=== PATIENT | female | born 1970 | race Caucasian/White ===

== ENCOUNTER → 2016-09-11 | Outpatient (CLI) | payer BC ==
--- NOTE | 2016-09-12 10:01 | MM ---
Reason for exam: screening (asymptomatic). Last mammogram was performed 1 year and 5 months ago. History: Patient has history of other cancer at age 41. Benign right mammotome panel of the right breast, December 13, 2008. Took hormonal contraceptives for 5 years beginning at age 18. Physical Findings: A clinical breast exam by your physician is recommended on an annual basis and results should be correlated with mammographic findings. MG 3D Screening Mammo W/Cad Bilateral CC and MLO view(s) were taken. Prior study comparison: April 01, 2015, bilateral MG screening mammo w CAD. March 31, 2014, bilateral MG screening mammo w CAD. The breast tissue is almost entirely fat. Previous mammotome biopsy in the right breast. There is chronic nodularity in the right breast. No significant changes when compared with prior studies. ASSESSMENT: Benign, BI-RAD 2 RECOMMENDATION: Routine screening mammogram of both breasts in 1 year.
== END ==
LOC: RADMAMWWP 13:25
PROVIDERS: ATTEND Obstetrics & Gynecology
DX: Z12.31 Encounter for screening mammogram for malignant neoplasm of breast (principal)
CPT/HCPCS: 77063; G0202

== ENCOUNTER → 2018-01-15 | Outpatient (CLI) | payer BC ==
--- NOTE | 2018-01-16 10:43 | MM ---
Reason for exam: screening (asymptomatic). Last mammogram was performed 1 year and 4 months ago. History: Patient has history of other cancer at age 41. Benign right mammotome panel of the right breast, December 13, 2008. Took hormonal contraceptives for 5 years beginning at age 18. Physical Findings: A clinical breast exam by your physician is recommended on an annual basis and results should be correlated with mammographic findings. MG 3D Screening Mammo W/Cad Bilateral CC and MLO view(s) were taken. XCCL view(s) were taken of the right breast. Prior study comparison: September 11, 2016, bilateral MG 3d screening mammo w/cad. April 01, 2015, bilateral MG screening mammo w CAD. There are scattered fibroglandular densities. Previous mammotome biopsy in the right breast. No significant changes when compared with prior studies. ASSESSMENT: Benign, BI-RAD 2 RECOMMENDATION: Routine screening mammogram of both breasts in 1 year.
== END | disposition home or self-care (01) ==
LOC: RADMAMWWP 16:33
PROVIDERS: ATTEND Obstetrics & Gynecology
DX: Z12.31 Encounter for screening mammogram for malignant neoplasm of breast (principal)
CPT/HCPCS: 77063; 77067

== ENCOUNTER → 2018-03-28 | Outpatient (CLI) | payer BC ==
--- NOTE | 2018-03-28 13:47 | CT ---
EXAMINATION TYPE: CT brain wo con DATE OF EXAM: 03/28/2018 COMPARISON: NONE HISTORY: History of brain tumor with shunt placement, pt c/o dizziness CT DLP: 857.9 mGycm. Automated Exposure Control for Dose Reduction was Utilized. TECHNIQUE: CT scan of the head is performed without contrast. FINDINGS: There is a large simple fluid attenuated assumably postsurgical fluid collection at the sit e of prior occipital craniectomy with slight mass effect upon the posterior cerebellar hemispheres an d cerebellar tonsils. This measures up to 3.4 x 6.6 cm. There is a right occipital approach ventriculoperitoneal shunt with reservoir in the right posterior lateral subcutaneous soft tissues overlying the right lateral occipital bone. 2 areas of lucency are similar in the cranial and caudal aspects of this reservoir on series 6 image 57 on bone windows at t he area of connection. No gross evidence of discontinuity is seen. No calcifications along with intra ventricular shunt are seen, however there is a punctate calcification at the distal tip of the interv entricular shunt at the foramen Colvin. The ventricles are prominent with mild periventricular areas of hypoattenuation that could represent transependymal edema. Ventricular size measures 4.8 cm at the level of the foramen Colvin on series 3 image 19 and could be compared with any prior imaging if available. Prominence of the ventricular ho rns is also noted. There is a partial empty sella turcica. Cerebral aqueduct appears patent. There is no evidence of acute intracranial hemorrhage, midline shift or vasogenic edema. Peripheral s ulci near the skull vertex appear age-appropriate. Inspissated secretions, moderate in degree are see n within the sphenoid sinuses. Remaining paranasal sinuses and mastoid air cells appear well aerated. IMPRESSION: 1. Although there is no gross obstruction at the foramen of [place]ro the ventricles are dilated with min imal transependymal edema versus periventricular white matter change. Comparison with any prior would be of benefit to evaluate for interval change in ventricular size. A punctate calcification is noted of the distal tip of the intraventricular catheter located at the foramen of Colvin. 2. No gross evidence of discontinuity or calcifications along the right occipital ventriculoperitonea l shunt other than the above mentioned distal tip calcification. 3. Presumably postsurgical fluid collection abutting the posterior fossa at the occipital craniectomy site with slight mass effect upon the cerebellar tonsils and cerebellar hemispheres.
== END | disposition home or self-care (01) ==
LOC: RADCTMAIN 12:34
PROVIDERS: ATTEND Neurological Surgery
DX: Z48.811 Encounter for surgical aftercare following surgery on the nervous system (principal); Z98.2 Presence of cerebrospinal fluid drainage device
CPT/HCPCS: 70450

== ENCOUNTER 2018-05-29 13:39 | Emergency (ER) | payer BC ==
[2018-05-29] MEDS ORDERED: ONDANSETRON 4 MG/2 ML VIAL IVP STA (15:16)
[2018-05-29] MEDS ORDERED: SODIUM CHLORIDE 0.9% 1,000 ML IV STA (15:16)
--- NOTE | 2018-05-29 15:20 | ED ---
Fall HPI - General Chief Complaint: Fall Stated Complaint: Fell twice Time Seen by Provider: 05/29/18 15:00 Source: patient, RN notes reviewed, old records reviewed Mode of arrival: wheelchair - History of Present Illness Initial Comments: 47-year-old female with a past medical history of brain tumor, surgery in 2016 and 2017 presents emergency department today with chief complaint of feeling off for the past week. Patient reports she's been having chronic weakness on her right side since the diagnosis of a brain tumor. She reports that over the past week she's had increased change in her short-term memory. She also states that she's had worsening weakness in her legs for the past 3 months. She reports she fell twice today. Patient states that she has no recent head injury or specific trauma. She states that over the past few months she's had this progressive any worsening of right-sided weakness. She states that she is trying to get off her pain medication and decided one week ago to stop taking it at once. She was on [place] 10 twice a day. - Related Data Home Medications Medication Instructions Recorded Confirmed Baclofen [Lioresal] 10 mg PO TID 05/29/18 05/29/18 Gabapentin [Neurontin] 100 mg PO TID 05/29/18 05/29/18 Levothyroxine Sodium [Synthroid] 125 mcg PO DAILY 05/29/18 05/29/18 Losartan Potassium 50 mg PO DAILY 05/29/18 05/29/18 Meloxicam 7.5 mg PO DAILY 05/29/18 05/29/18 traZODone HCL 200 mg PO HS 05/29/18 05/29/18 Allergies Allergy/AdvReac Type Severity Reaction Status Date / Time No Known Allergies Allergy Verified 05/29/18 15:34 Review of Systems ROS Statement: Those systems with pertinent positive or pertinent negative responses have been documented in the HPI. ROS Other: All systems not noted in ROS Statement are negative. Past Medical History Past Medical History: Hypertension, Thyroid Disorder Additional Past Medical History / Comment(s): brain tumor with removal, thyroid CA with removal History of Any Multi-Drug Resistant Organisms: None Reported Past Surgical History: Orthopedic Surgery Additional Past Surgical History / Comment(s): removal of brain tumor, thyroid removal, shunt, knee, shoulder Past Psychological History: Depression Smoking Status: Never smoker Past Alcohol Use History: None Reported Past Drug Use History: None Reported General Exam - General Exam Comments Initial Comments: 47-year-old female. Alert and oriented 3. She appears in no acute distress. Limitations: no limitations Head exam: Present: atraumatic, normocephalic, normal inspection Eye exam: Present: normal appearance, PERRL, EOMI. Absent: scleral icterus, conjunctival injection, periorbital swelling ENT exam: Present: normal exam, mucous membranes moist Neck exam: Present: normal inspection. Absent: tenderness, meningismus, lymphadenopathy Respiratory exam: Present: normal lung sounds bilaterally. Absent: respiratory distress, wheezes, rales, rhonchi, stridor Cardiovascular Exam: Present: regular rate, normal rhythm, normal heart sounds. Absent: systolic murmur, diastolic murmur, rubs, gallop, clicks GI/Abdominal exam: Present: soft, normal bowel sounds. Absent: distended, tenderness, guarding, rebound, rigid Extremities exam: Present: normal inspection, full ROM, normal capillary refill. Absent: tenderness, pedal edema, joint swelling, calf tenderness Back exam: Present: normal inspection Neurological exam: Present: alert, oriented X3, CN II-XII intact Expanded Patient oriented to: Present: person, place, time Speech: Present: fluid speech Cranial nerves: EOM's Intact: Normal Cerebellar function: Finger to Nose: Normal Upper motor neuron: Pronator Drift: Abnormal Right (Patient does have weakness over the right arm. Patient reports that is chronic.) Sensory exam: Upper Extremity Light Touch: Normal, Lower Extremity Light Touch: Normal Motor strength exam: RUE: 4, LUE: 5, RLE: 4, LLE: 5 Eye Response: (4) open spontaneously Motor Response: (6) obeys commands Verbal Response: (5) oriented [place] Total: 15 Psychiatric exam: Present: normal affect, normal mood Skin exam: Present: warm, dry, intact, normal color. Absent: rash Course Vital Signs 05/29/18 14:20 Temperature 97.9 F Pulse Rate 82 Respiratory 18 Rate Blood Pressure 116/68 O2 Sat by Pulse 96 Oximetry Medical Decision Making - Medical Decision Making 47-year-old female with history of brain tumor presents emergency department today with "feeling foggy" for the past week. Patient reports she's had change in her recent short-term memory. She is on multiple sedating medications including trazodone, gabapentin. She reports she stopped taking [place] past week. She did have 2 falls today. She questions if she could be having a new brain tumors or any new signs or abnormalities and her random would be in relation to her weakness. She does see a neurologist at [facility]. At this time patient's CTs of her brain shows no evidence of any acute abdomen rales. She does have a [employer] shunt which appears to be functioning without any new changes. Blood work was reviewed and unremarkable. Patient was supposedly the urine sample but then did not catch any time. She reports she will not be able to get another one. - Lab Data Result diagrams: 05/29/18 15:45 05/29/18 15:45 Lab Results 05/29/18 05/29/18 05/29/18 Range/Units 15:45 15:45 15:45 WBC 6.9 (3.8-10.6) k/uL RBC 4.72 (3.80-5.40) m/uL Hgb 13.8 (11.4-16.0) gm/dL Hct 43.9 (34.0-46.0) % MCV 93.0 (80.0-100.0) fL MCH 29.3 (25.0-35.0) pg MCHC 31.5 (31.0-37.0) g/dL RDW 13.1 (11.5-15.5) % Plt Count 251 (150-450) k/uL Neutrophils % 67 % Lymphocytes % 22 % Monocytes % 7 % Eosinophils % 2 % Basophils % 1 % Neutrophils # 4.6 (1.3-7.7) k/uL Lymphocytes # 1.5 (1.0-4.8) k/uL Monocytes # 0.5 (0-1.0) k/uL Eosinophils # 0.1 (0-0.7) k/uL Basophils # 0.0 (0-0.2) k/uL PT (9.0-12.0) sec INR (<1.2) APTT (22.0-30.0) sec Sodium 142 (137-145) mmol/L Potassium 4.0 (3.5-5.1) mmol/L Chloride 102 (98-107) mmol/L Carbon Dioxide 29 (22-30) mmol/L Anion Gap 11 mmol/L BUN 17 (7-17) mg/dL Creatinine 0.50 L (0.52-1.04) mg/dL Est GFR (CKD-EPI)AfAm >90 (>60 ml/min/1.73 sqM) Est GFR (CKD-EPI)NonAf >90 (>60 ml/min/1.73 sqM) Glucose 122 H (74-99) mg/dL Calcium 9.1 (8.4-10.2) mg/dL Total Bilirubin 0.3 (0.2-1.3) mg/dL AST 25 (14-36) U/L ALT 13 (9-52) U/L Alkaline Phosphatase 38 (38-126) U/L Total Creatine Kinase 345 H (30-135) U/L CK-MB (CK-2) 5.1 H (0.0-2.4) ng/mL CK-MB (CK-2) Rel Index 1.5 Troponin I <0.012 (0.000-0.034) ng/mL Total Protein 6.7 (6.3-8.2) g/dL Albumin 4.1 (3.5-5.0) g/dL 05/29/18 Range/Units 15:45 WBC (3.8-10.6) k/uL RBC (3.80-5.40) m/uL Hgb (11.4-16.0) gm/dL Hct (34.0-46.0) % MCV (80.0-100.0) fL MCH (25.0-35.0) pg MCHC (31.0-37.0) g/dL RDW (11.5-15.5) % Plt Count (150-450) k/uL Neutrophils % % Lymphocytes % % Monocytes % % Eosinophils % % Basophils % % Neutrophils # (1.3-7.7) k/uL Lymphocytes # (1.0-4.8) k/uL Monocytes # (0-1.0) k/uL Eosinophils # (0-0.7) k/uL Basophils # (0-0.2) k/uL PT 10.3 (9.0-12.0) sec INR 1.1 (<1.2) APTT 24.2 (22.0-30.0) sec Sodium (137-145) mmol/L Potassium (3.5-5.1) mmol/L Chloride (98-107) mmol/L Carbon Dioxide (22-30) mmol/L Anion Gap mmol/L BUN (7-17) mg/dL Creatinine (0.52-1.04) mg/dL Est GFR (CKD-EPI)AfAm (>60 ml/min/1.73 sqM) Est GFR (CKD-EPI)NonAf (>60 ml/min/1.73 sqM) Glucose (74-99) mg/dL Calcium (8.4-10.2) mg/dL Total Bilirubin (0.2-1.3) mg/dL AST (14-36) U/L ALT (9-52) U/L Alkaline Phosphatase (38-126) U/L Total Creatine Kinase (30-135) U/L CK-MB (CK-2) (0.0-2.4) ng/mL CK-MB (CK-2) Rel Index Troponin I (0.000-0.034) ng/mL Total Protein (6.3-8.2) g/dL Albumin (3.5-5.0) g/dL 05/29/18 16:13 Normal sinus rhythm, septal infarct. Age undetermined. Ventricular rate of 70 bpm. GA interval is 162. Curious duration 82. QT QTc is 388/442 ms. - Radiology Data Radiology results: report reviewed No acute intracranial process is seen at this time. Stable ventricular dilation with transependymal edema versus. Ventricular rate management. Postsurgical fluid collection at the site of the occipital craniectomy. Disposition Clinical Impression: Fall, History of brain tumor, Right-sided muscle weakness Disposition: HOME SELF-CARE Condition: Good Instructions: Fall Prevention (ED) Additional Instructions: Patient advised to decrease trazodone or other sedative medications at nighttime to assist with We'll get to the restroom. Patient should follow up with your neurologist and primary care physician. Return to the emergency department if any alarming signs or symptoms occur. Recommended calling physical therapy or see a primary care provider for referral her information for physicial therapy. Is patient prescribed a controlled substance at d/c from ED?: No Referrals: Joseph Cuadra MD [Primary Care Provider] - 1-2 days Time of Disposition: 17:47
[2018-05-29 15:58] LABS: Basophils % (A) 1 %; Eosinophils # (A) 0.1 k/uL (0-0.7); Eosinophils % (A) 2 %; HCT 43.9 % (34.0-46.0); HGB 13.8 gm/dL (11.4-16.0); Lymphocytes # (A) 1.5 k/uL (1.0-4.8); Lymphocytes % (A) 22 %; MCH 29.3 pg (25.0-35.0); MCHC 31.5 g/dL (31.0-37.0); Mean Platelet Volume 6.4; Monocytes # (A) 0.5 k/uL (0-1.0); Monocytes % (A) 7 %; Neutrophils # (A) 4.6 k/uL (1.3-7.7); Neutrophils % (A) 67 %; Platelet Count 251 k/uL (150-450); RBC 4.72 m/uL (3.80-5.40); RDW 13.1 % (11.5-15.5); WBC 6.9 k/uL (3.8-10.6)
[2018-05-29 16:04] LABS: INR 1.1 (<1.2); Partial Thromboplastin Time 24.2 sec (22.0-30.0); Prothrombin Time 10.3 sec (9.0-12.0)
[2018-05-29 16:06] LABS: ALT 13 U/L (9-52); AST 25 U/L (14-36); Albumin 4.1 g/dL (3.5-5.0); Alkaline Phosphatase 38 U/L (38-126); Anion Gap 11 mmol/L; Blood Urea Nitrogen 17 mg/dL (7-17); Calcium 9.1 mg/dL (8.4-10.2); Carbon Dioxide 29 mmol/L (22-30); Chloride 102 mmol/L (98-107); Glucose 122 mg/dL (74-99); Sodium 142 mmol/L (137-145); Total Bilirubin 0.3 mg/dL (0.2-1.3); Total Protein 6.7 g/dL (6.3-8.2)
[2018-05-29 16:14] LABS: Creatine Kinase 345 U/L (30-135)
[2018-05-29 16:27] LABS: Creatine Kinase MB 5.1 ng/mL (0.0-2.4); Troponin I <0.012 ng/mL (0.000-0.034)
--- NOTE | 2018-05-29 16:34 | CT ---
EXAMINATION TYPE: CT brain wo con DATE OF EXAM: 05/29/2018 COMPARISON: 03/28/2018 HISTORY: Weakness and fall x2. CT DLP: 930.[address] of the brain was performed. The ventricles, basal cisterns and sulci overlying the cerebral convexities demonstrate moderate enla rgement unchanged from prior study. Ventriculoperitoneal shunt is noted with right parietal occipital approach. The tip of the shunt is at the level of the third ventricle. There is mild periventricular lucency noted also unchanged from prior examination. There is decompressive occipital craniotomy with postsurgical fluid collection noted unchanged with r egard to size shape and appearance. There is no evidence for intracranial hemorrhage or sulcal effacement. Osseous calvarium is intact. If symptoms persist consider MRI as clinically warranted. IMPRESSION: 1. No acute intracranial process is seen at this time. 2. Stable ventricular dilatation with transependymal edema versus periventricular white matter change . 3. Postsurgical fluid collection at the site of occipital craniectomy.
--- NOTE | 2018-05-29 17:53 | XR ---
EXAMINATION TYPE: XR chest 2V DATE OF EXAM: 05/29/2018 COMPARISON: NONE HISTORY: Altered mental status. TECHNIQUE: Frontal and lateral views of the chest are obtained. FINDINGS: There is no heart failure nor confluent pneumonic infiltrate. Costophrenic angles are demi r. Bony thorax is intact. There is ventriculoperitoneal shunt catheter noted. Heart is top normal in size. IMPRESSION: Borderline cardiomegaly. No active cardiopulmonary disease.
[2018-05-29 18:16] VITALS: BP 141/89; PULSE 78; RESP 16; TEMP 98
== END 2018-05-29 18:15 | disposition home or self-care (01) ==
LOC: EC 13:39
DX: M62.81 Muscle weakness (generalized) (principal); I10 Essential (primary) hypertension; F32.9 Major depressive disorder, single episode, unspecified; E89.0 Postprocedural hypothyroidism; Z98.2 Presence of cerebrospinal fluid drainage device; Z79.1 Long term (current) use of non-steroidal anti-inflammatories (NSAID); Z79.891 Long term (current) use of opiate analgesic; Z79.899 Other long term (current) drug therapy; Z85.850 Personal history of malignant neoplasm of thyroid; Z86.011 Personal history of benign neoplasm of the brain; W19.XXXA Unspecified fall, initial encounter; Y92.009 Unspecified place in unspecified non-institutional (private) residence as the place of occurrence of the external cause
CPT/HCPCS: 36415; 70450; 71046; 80053; 82550; 82553; 84484; 85025; 85610; 85730; 96360; 96361; 99284

== ENCOUNTER 2018-09-26 11:56 | Day surgery (SDC) | payer BC ==
[2018-09-25 08:27] VITALS: BMI 24.5
[2018-09-26 12:24] VITALS: RESP 16; TEMP 99.6
[2018-09-26] MEDS ORDERED: LACTATED RINGERS 1,000 ML IV ONE (12:33)
[2018-09-26] MEDS ORDERED: LIDOCAINE 1% 20 ML VIAL (10MG/ML) FOR IV START INTRADERMA ONE (12:37)
[2018-09-26] MEDS ORDERED: ONDANSETRON 4 MG/2 ML VIAL IVP ONE (12:41)
[2018-09-26] MEDS ORDERED: PROPOFOL 10 MG/ML 20 ML VIAL IV ONE (13:10)
[2018-09-26] MEDS ORDERED: LIDOCAINE 1% INJ 10MG/ML (20 ML MDV) ONE (13:10)
[2018-09-26] MEDS ORDERED: fentaNYL (PF) 50 MCG/ML 2 ML AMP ONE (13:10)
[2018-09-26] MEDS ORDERED: MIDAZOLAM 2 MG/2 ML VIAL ONE (13:10)
--- NOTE | 2018-09-26 13:35 | P.PCN ---
Date of Procedure: 09/26/18 Procedure(s) Performed: BRIEF HISTORY: Patient is a 48-year-old pleasant white female, scheduled for an elective colonoscopy as a part of screening for colorectal neoplasia. She does have family history of colon cancer diagnosed in her mother at age 80. PROCEDURE PERFORMED: Colonoscopy. PREOPERATIVE DIAGNOSIS: Screening for colon cancer/family history of colon cancer. IV sedation per Anesthesia. PROCEDURE: After informed consent was obtained, the patient, was brought into the endoscopy unit. IV sedation was administered by Anesthesia under continuous monitoring. Digital rectal examination was normal. Initially the Olympus CF- 160 flexible video colonoscope was then inserted in the rectum, gradually advanced into the cecum without any difficulty. Careful examination was performed as the scope was gradually being withdrawn. Ileocecal valve and the appendiceal orifice were visualized and appeared normal. Prep was fair.. Mucosa of the cecum, ascending colon, transverse colon, descending colon, sigmoid colon, and rectum appeared normal. Retroflexion was performed in the rectum and no lesions were seen. The patient tolerated the procedure well. IMPRESSION: Normal-appearing colon from rectum to cecum with no evidence of colorectal neoplasia . RECOMMENDATIONS: Findings of this examination were discussed with the patient well as her family. She was advised to have a repeat screening colonoscopy in 5 years because of the family history of colon cancer..
[2018-09-26 13:49] VITALS: BP 135/81; PULSE 78
== END 2018-09-26 14:08 | disposition home or self-care (01) ==
LOC: ORWHC2ENDO 11:56
PROVIDERS: ATTEND Internal Medicine Gastroenterology
DX: Z12.11 Encounter for screening for malignant neoplasm of colon (principal); Z80.0 Family history of malignant neoplasm of digestive organs; I10 Essential (primary) hypertension; I25.10 Atherosclerotic heart disease of native coronary artery without angina pectoris; E89.0 Postprocedural hypothyroidism; Z79.890 Hormone replacement therapy; Z79.899 Other long term (current) drug therapy; Z79.1 Long term (current) use of non-steroidal anti-inflammatories (NSAID)
CPT/HCPCS: J2250; J2405; J2001; J3010; J2704; G0105

== ENCOUNTER → 2019-03-02 | Outpatient (CLI) | payer BC ==
--- NOTE | 2019-03-04 07:39 | MM ---
Reason for exam: screening (asymptomatic). Last mammogram was performed 1 year and 1 month ago. History: Patient has history of other cancer at age 41. Benign right mammotome panel of the right breast, December 13, 2008. Took hormonal contraceptives for 5 years beginning at age 18. Physical Findings: A clinical breast exam by your physician is recommended on an annual basis and results should be correlated with mammographic findings. MG 3D Screening Mammo W/Cad Bilateral CC and MLO view(s) were taken. Prior study comparison: January 15, 2018, bilateral MG 3d screening mammo w/cad. September 11, 2016, bilateral MG 3d screening mammo w/cad. There are scattered fibroglandular densities. No suspicious abnormality. Right biopsy marker noted. Right catheter also seen. No significant changes when compared with prior studies. ASSESSMENT: Negative, BI-RAD 1 RECOMMENDATION: Routine screening mammogram of both breasts in 1 year.
== END | disposition home or self-care (01) ==
LOC: RADMAMWWP 12:59
PROVIDERS: ATTEND Obstetrics & Gynecology
DX: Z12.31 Encounter for screening mammogram for malignant neoplasm of breast (principal)
CPT/HCPCS: 77063; 77067

== ENCOUNTER → 2019-04-07 | Outpatient (CLI) | payer BC ==
--- NOTE | 2019-04-07 12:27 | XR ---
Bilateral shoulders HISTORY: Shoulder pain, history rotator cuff repair, M 25.511, M 25.512 2 views of each shoulder. Distal acromions downturned. There is no fracture or dislocation. Bone mineralization and alignment a re maintained. Lung apices are unremarkable. IMPRESSION: Correlate for impingement.
== END | disposition home or self-care (01) ==
LOC: RADXRMAIN 11:46
PROVIDERS: ATTEND Family Medicine
DX: M25.512 Pain in left shoulder (principal); M25.511 Pain in right shoulder

== ENCOUNTER → 2020-06-08 | Outpatient (CLI) | payer BC ==
--- NOTE | 2020-06-09 11:02 | MM ---
Reason for exam: screening (asymptomatic). Last mammogram was performed 1 year and 3 months ago. History: Patient is postmenopausal and has history of other cancer at age 41. Benign right mammotome panel of the right breast, December 13, 2008. Took hormonal contraceptives for 5 years beginning at age 18. Physical Findings: A clinical breast exam by your physician is recommended on an annual basis and results should be correlated with mammographic findings. MG 3D Screening Mammo W/Cad Bilateral CC and MLO view(s) were taken. XCCL view(s) were taken of the right breast. Prior study comparison: March 02, 2019, bilateral MG 3d screening mammo w/cad. January 15, 2018, bilateral MG 3d screening mammo w/cad. There are scattered fibroglandular densities. There is no discrete abnormality. No significant changes when compared with prior studies. ASSESSMENT: Negative, BI-RAD 1 RECOMMENDATION: Routine screening mammogram of both breasts in 1 year.
== END | disposition home or self-care (01) ==
LOC: RADMAMWWP 10:58
PROVIDERS: ATTEND Obstetrics & Gynecology
DX: Z12.31 Encounter for screening mammogram for malignant neoplasm of breast (principal)
CPT/HCPCS: 77063; 77067

== ENCOUNTER 2020-11-18 11:37 | Emergency (ER) | payer BC ==
[2020-11-18 11:46] VITALS: BP 111/74; PULSE 84; RESP 16; TEMP 98.1
[2020-11-18] MEDS ORDERED: MORPHINE SULFATE 2 MG/ML SYRINGE IM STA (12:27)
[2020-11-18] MEDS ORDERED: ONDANSETRON ODT 4 MG TAB PO STA (12:28)
--- NOTE | 2020-11-18 12:28 | ED ---
Fall HPI - General Chief Complaint: Fall Stated Complaint: R Shoulder/Arm Pain Time Seen by Provider: 11/18/20 11:46 Source: EMS Mode of arrival: EMS - History of Present Illness Initial Comments: 50-year-old female presenting today for chief complaint of right shoulder pain. Patient states that she tripped [place] Patient states that she has severe pain at the proximal shoulder joint. Patient states that she still able to move her hand and elbow. Patient states that after brain surgery 4 years ago she is already had limited range of motion overhead. Patient was concerned that she had a fracture present to the ER she denies any injury to the head neck chest or abdomen. Patient denies loss of consciousness she denies syncopal episode. Patient denies a loss of sensation of the extremity. Remaining review of systems negative upon arrival patient appears well nontoxic she is in no acute distress. Initially refusing pain medications. - Related Data Home Medications Medication Instructions Recorded Confirmed Baclofen [Lioresal] 10 mg PO TID 05/29/18 11/18/20 Losartan Potassium 50 mg PO DAILY 05/29/18 11/18/20 Meloxicam 7.5 mg PO BID 05/29/18 11/18/20 Cholecalciferol (Vitamin D3) 50 mcg PO DAILY 09/25/18 11/18/20 [Vitamin D3] Acetaminophen Tab [Tylenol Tab] 1,000 mg PO Q6H PRN 09/26/18 11/18/20 Latanoprost [Xalatan 0.005%] 1 drop BOTH EYES HS 11/18/20 11/18/20 Levothyroxine Sodium [Synthroid] 125 mcg PO DAILY 11/18/20 11/18/20 Progesterone, Micronized 400 mg PO HS 11/18/20 11/18/20 [Progesterone] hydroCHLOROthiazide [Hydrodiuril] 25 mg PO DAILY 11/18/20 11/18/20 traZODone HCL 50 mg PO HS 11/18/20 11/18/20 Allergies Allergy/AdvReac Type Severity Reaction Status Date / Time No Known Allergies Allergy Verified 11/18/20 12:55 Review of Systems ROS Statement: Those systems with pertinent positive or pertinent negative responses have been documented in the HPI. ROS Other: All systems not noted in ROS Statement are negative. Past Medical History Past Medical History: Cancer, Hypertension, Thyroid Disorder Additional Past Medical History / Comment(s): brain tumor with removal, thyroid CA with removal History of Any Multi-Drug Resistant Organisms: None Reported Past Surgical History: Orthopedic Surgery Additional Past Surgical History / Comment(s): removal of brain tumor, thyroid removal, shunt, LT knee SX, RTshoulder Past Psychological History: Depression Smoking Status: Former smoker Past Alcohol Use History: None Reported Past Drug Use History: None Reported General Exam - General Exam Comments Initial Comments: General: The patient is awake and alert, in no distress Eye: Pupils are equal, round and reactive to light, extra-ocular movements are intact. No nystagmus. There is normal conjunctiva bilaterally. No signs of icterus. Ears, nose, mouth and throat: There are moist mucous membranes and no oral lesions. No raccoon or Rizo sign Neck: The neck is supple, there is no tenderness or JVD. Midline or paraspinal tenderness to palpation of the cervical spine Cardiovascular: There is a regular rate and rhythm. No murmur, rub or gallop is appreciated. Respiratory: Lungs are clear to auscultation, respirations are non-labored, breath sounds are equal. No wheezes, stridor, rales, or rhonchi. Gastrointestinal: Soft, non-distended, non-tender abdomen without masses or organomegaly noted. There is no rebound or guarding present. Musculoskeletal: Soft tissue swelling noted over the anterior right shoulder. There is some gross deformity and concern for dislocation. Patient is unable to range of the right shoulder secondary to pain. She is able to range at the right elbow and wrist. Patient is able to make the fingers crossed okay thumbs- up and oppose the small digit and thumb. Compartments are soft and compressible the upper arm. Radial pulses +2 equal comparison bilaterally. No evidence of wristdrop. No badge anesthesia. Neurological: A&O x 3. CN II-XII intact grossly, There are no obvious motor or sensory deficits. Coordination appears grossly intact. Speech is normal. Skin: Skin is warm and dry and no rashes or lesions are noted. Psychiatric: Cooperative, appropriate mood & affect, normal judgment. Limitations: no limitations Course Vital Signs 11/18/20 11:43 Temperature 98.1 F Pulse Rate 84 Respiratory 16 Rate Blood Pressure 111/74 O2 Sat by Pulse 95 Oximetry - Reevaluation(s) Reevaluation #1: pt initially refused pain medication-- 11/18/20 Medical Decision Making - Medical Decision Making Due to-year-old female presented for trip and fall. Right shoulder injury. There is a significant three-part fracture with dislocation of the articular head of the right humerus. Patient is neurovascularly intact at this time. She will be placed in a sling and transferred to Dr Sparrow service at [facility] I did first contact on-call orthopedic surgeon Dr. Marti speaking with his physician research lab assistant Thanh Sevilla who spoke with his attending who recommended transfer of this patient for higher level of care. Patient agreeable to transfer and prefers EMS transfer. Disposition Clinical Impression: Right humeral fracture, Fracture dislocation of right shoulder joint Disposition: OTHER INSTITUTION NOT DEFINED Condition: Stable Is patient prescribed a controlled substance at d/c from ED?: No Referrals: Joseph Cuadra MD [Primary Care Provider] - 1-2 days Time of Disposition: 13:37 - Out of Hospital Transfer - Req. Specs Out of Hospital Transfer - Requested Specifics: Other Emergency Center ([facility]-.Dr Ruiz)
--- NOTE | 2020-11-18 12:29 | XR ---
EXAMINATION TYPE: XR shoulder complete RT DATE OF EXAM: 11/18/2020 Comparison: 04/07/2019 Clinical History: 50-year-old female fall shoulder pain Findings: Proximal humeral fracture, at least 2 part, suspected three-part fracture with surgical neck and doug omic neck fracture components. The articular surface of the humeral head appears displaced/dislocated anteriorly. 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 Impression: Proximal humeral fracture, at least 2 part, suspected three-part fracture, with surgical neck and bonita tomic neck fracture components. The articular surface of the humeral head is displaced/dislocated ant eriorly.
[2020-11-18] MEDS ORDERED: HYDROmorphone 0.5 MG/0.5 ML SYRINGE IVP STA (14:35)
== END 2020-11-18 14:47 | disposition other institution (70) ==
LOC: EC 11:37
DX: S42.201A Unspecified fracture of upper end of right humerus, initial encounter for closed fracture (principal); F32.9 Major depressive disorder, single episode, unspecified; I10 Essential (primary) hypertension; Z79.1 Long term (current) use of non-steroidal anti-inflammatories (NSAID); Z85.850 Personal history of malignant neoplasm of thyroid; Z87.891 Personal history of nicotine dependence; Z79.899 Other long term (current) drug therapy; Y93.01 Activity, walking, marching and hiking; W01.0XXA Fall on same level from slipping, tripping and stumbling without subsequent striking against object, initial encounter
CPT/HCPCS: 73030; 99284; 96374; 96372; J2270; J1170

== ENCOUNTER → 2021-02-10 | Outpatient (CLI) | payer BC ==
--- NOTE | 2021-02-10 14:31 | XR ---
EXAMINATION TYPE: XR shoulder complete RT DATE OF EXAM: 02/10/2021 CLINICAL HISTORY: Recent fall, shoulder replacement surgery November 2020 TECHNIQUE: Three views of the right shoulder are obtained. COMPARISON: Prior right shoulder x-ray November 18, 2020. FINDINGS: Metallic hardware from reverse right shoulder arthroplasty now present through comminuted f racture [place] right proximal humerus. Positioning felt satisfactory. Fracture presumed related to pr ior trauma. [place] osseous structures are demineralized. Acromioclavicular joint is maintained. Visua lized ribs are intact. IMPRESSION: As above.
== END | disposition home or self-care (01) ==
LOC: RADXRMAIN 14:00
PROVIDERS: ATTEND Orthopaedic Surgery Orthopaedic Trauma
DX: Z96.611 Presence of right artificial shoulder joint (principal); W19.XXXA Unspecified fall, initial encounter

== ENCOUNTER → 2021-06-22 | Outpatient (CLI) | payer BC, MEDICARE ==
--- NOTE | 2021-06-23 11:14 | MM ---
Reason for exam: screening (asymptomatic). Last mammogram was performed 1 year ago. History: Patient is postmenopausal and has history of other cancer at age 41. Benign right mammotome panel of the right breast, December 13, 2008. Took hormonal contraceptives for 5 years beginning at age 18. Taking estrogen for 1 year 6 months. Taking progesterone for 1 year 6 months. Physical Findings: A clinical breast exam by your physician is recommended on an annual basis and results should be correlated with mammographic findings. MG 3D Screening Mammo W/Cad Bilateral CC and MLO view(s) were taken. Prior study comparison: June 08, 2020, bilateral MG 3d screening mammo w/cad. March 02, 2019, bilateral MG 3d screening mammo w/cad. There are scattered fibroglandular densities. Previous mammotome biopsy in the right breast. There is no discrete abnormality. Partial visualization of right shunt tube posterior lower inner quadrant redemonstrated. ASSESSMENT: Benign, BI-RAD 2 RECOMMENDATION: Routine screening mammogram of both breasts in 1 year.
== END | disposition home or self-care (01) ==
LOC: RADMAMWWP 13:01
PROVIDERS: ATTEND Obstetrics & Gynecology
DX: Z12.31 Encounter for screening mammogram for malignant neoplasm of breast (principal); Z78.0 Asymptomatic menopausal state
CPT/HCPCS: 77063; 77067

== ENCOUNTER → 2022-06-28 | Outpatient (CLI) | payer MEDICARE ==
--- NOTE | 2022-06-29 17:50 | MM ---
Reason for Exam: Screening (asymptomatic). Last screening mammogram was performed 12 month(s) ago. Patient History: Menarche at age 11. First Full-Term at age 24. Postmenopausal. Other cancer, age 41. Currently using Estrogen, for 1 year, 6 months. Currently using Progesterone, for 1 year, 6 months. Hormonal Contraceptives for 5 years from age 18 until age 23. 12/13/2008, Benign Core Biopsy on the right side. Risk Values: [place] 5 year model risk: 1.4%. NCI Lifetime model risk: 11.0%. Prior Study Comparison: 03/02/2019 Bilateral Screening Mammogram, [facility]. 06/08/2020 Bilateral Screening Mammogram, [facility]. 06/22/2021 Bilateral Screening Mammogram, [facility]. Tissue Density: There are scattered fibroglandular densities. Findings: Analyzed By CAD. Microclip right breast from prior biopsy. Catheter is again seen along the medial aspect of the right breast. No significant change from prior exams. Overall Assessment: Negative, BI-RAD 1 Management: Screening Mammogram of both breasts in 1 year. 1. Patient should continue monthly self breast exams. 2. A clinical breast exam by your physician is recommended on an annual basis. 3. This exam should not preclude additional follow-up of suspicious palpable abnormalities. Electronically signed and approved by: Negro Alfaro M.D. Radiologist
== END | disposition home or self-care (01) ==
LOC: RADMAMWWP 16:45
PROVIDERS: ATTEND Obstetrics & Gynecology
DX: Z12.31 Encounter for screening mammogram for malignant neoplasm of breast (principal); Z78.0 Asymptomatic menopausal state
CPT/HCPCS: 77063; 77067

== ENCOUNTER 2023-01-24 12:34 | Emergency (ER) | payer MEDICARE ==
[2023-01-24 12:54] VITALS: TEMP 97.9
[2023-01-24] MEDS ORDERED: ONDANSETRON 4 MG/2 ML VIAL IVP STA (12:58)
[2023-01-24] MEDS ORDERED: SODIUM CHLORIDE 0.9% 1,000 ML IV STA (12:58)
--- NOTE | 2023-01-24 13:00 | ED ---
Dizziness HPI - General Chief Complaint: Neuro Symptoms/Deficit Stated Complaint: Dizzy, numb right side, hearing loss left Time Seen by Provider: 01/24/23 12:58 Source: patient, RN notes reviewed, old records reviewed Mode of arrival: wheelchair Limitations: no limitations - History of Present Illness Initial Comments: This is a 52-year-old female to the emergency department for evaluation. Patient presents today for evaluation regarding severe vertigo dizziness facial numbness and tingling. Patient received muscle trigger point injections prior to arrival with a neurologist. Patient has had before without similar symptoms. Patient symptoms are improving R severe. With significant ataxia. Otherwise no travel history no sick contacts no trauma no fevers. Left ear does show some hearing deficit MD Complaint: dizziness, lightheadedness, difficulty walking -: minutes(s) Timing: sudden onset, constant Description: sense of movement, "room spinning", off-balance, difficulty walking History of Same: No Severity: moderate Worsens With: nothing Associated Symptoms: ataxia - Related Data Home Medications Medication Instructions Recorded Confirmed Losartan Potassium 50 mg PO DAILY 05/29/18 01/24/23 Meloxicam 7.5 mg PO BID 05/29/18 01/24/23 Acetaminophen Tab [Tylenol Tab] 1,000 mg PO Q6H PRN 09/26/18 01/24/23 Latanoprost [Xalatan 0.005%] 1 drop BOTH EYES HS 11/18/20 01/24/23 Progesterone, Micronized 400 mg PO HS 11/18/20 01/24/23 [Progesterone] hydroCHLOROthiazide [Hydrodiuril] 25 mg PO DAILY 11/18/20 01/24/23 traZODone HCL 50 mg PO HS 11/18/20 01/24/23 Baclofen [Lioresal] 20 mg PO TID 01/24/23 01/24/23 Botox 200 Unit Recon Solution 1 dose IM Q90D 01/24/23 01/24/23 Fluconazole [Diflucan] 150 mg PO OWUSU 01/24/23 01/24/23 Thyroid,Pork [[place] Thyroid] 90 mg PO DAILY 01/24/23 01/24/23 Allergies Allergy/AdvReac Type Severity Reaction Status Date / Time No Known Allergies Allergy Verified 01/24/23 14:15 Review of Systems ROS Statement: Those systems with pertinent positive or pertinent negative responses have been documented in the HPI. ROS Other: All systems not noted in ROS Statement are negative. Past Medical History Past Medical History: Cancer, Hypertension, Thyroid Disorder Additional Past Medical History / Comment(s): brain tumor with removal, thyroid CA with removal History of Any Multi-Drug Resistant Organisms: None Reported Past Surgical History: Orthopedic Surgery Additional Past Surgical History / Comment(s): removal of brain tumor, thyroid removal, shunt, LT knee SX, RTshoulder Past Psychological History: Depression Smoking Status: Former smoker Past Alcohol Use History: None Reported Past Drug Use History: None Reported General Exam - General Exam Comments Initial Comments: Patient is still off-balance General appearance: alert, in no apparent distress Head exam: Present: atraumatic, normocephalic, normal inspection Eye exam: Present: normal appearance, PERRL, EOMI, nystagmus. Absent: scleral icterus, conjunctival injection, periorbital swelling ENT exam: Present: normal exam, mucous membranes moist Neck exam: Present: normal inspection. Absent: tenderness, meningismus, lymphadenopathy Respiratory exam: Present: normal lung sounds bilaterally. Absent: respiratory distress, wheezes, rales, rhonchi, stridor Cardiovascular Exam: Present: regular rate, normal rhythm, normal heart sounds. Absent: systolic murmur, diastolic murmur, rubs, gallop, clicks GI/Abdominal exam: Present: soft, normal bowel sounds. Absent: distended, tenderness, guarding, rebound, rigid Extremities exam: Present: normal inspection, full ROM, normal capillary refill. Absent: tenderness, pedal edema, joint swelling, calf tenderness Back exam: Present: normal inspection Neurological exam: Present: alert, oriented X3, CN II-XII intact Psychiatric exam: Present: normal affect, normal mood Skin exam: Present: warm, dry, intact, normal color. Absent: rash Course Vital Signs 01/24/23 01/24/23 01/24/23 12:48 13:07 14:00 Temperature 97.9 F Pulse Rate 93 92 84 Respiratory 18 20 18 Rate Blood Pressure 87/53 142/79 144/86 O2 Sat by Pulse 96 95 Oximetry 01/24/23 15:47 Temperature Pulse Rate 89 Respiratory 16 Rate Blood Pressure 154/77 O2 Sat by Pulse 95 Oximetry - Reevaluation(s) Reevaluation #1: 01/24/23 17:41 Medical records reviewed Reevaluation #2: 01/24/23 17:41 Symptoms are resolved, hearing has returned Reevaluation #3: 01/24/23 17:41 Patient informed results questions answered Reevaluation #4: 01/24/23 17:41 Was pt. sent in by a medical professional or institution? @ -no Did you speak to anyone other than the patient for history? @ -no Did you review nursing and triage notes? @ -agree Were old charts reviewed? @ -no Differential Diagnosis? @ -prior EKG interpreted by me (3pts min.)? @ -yes X-rays interpreted by me (1pt min.)? @ -no CT interpreted by me (1pt min.)? @ -no U/S interpreted by me (1pt. min.)? @ -no What testing was considered but not performed? (CT, X-rays, U/S, labs)? Why? @ -no What meds were considered but not given? Why? @ -no Did you discuss the management of the patient with other professionals? @ -no Did you reconcile home meds? @ -no Was smoking cessation discussed for >3mins.? @ -no Was critical care preformed (if so, how long)? @ -no Were there social determinants of health that impacted care today? How? (Homelessness, low income, unemployed, alcoholism, drug addiction, transportation, low edu. Level, literacy, decrease access to med. care, retirement, rehab)? @ -no Was there de-escalation of care discussed even if they declined? (Discuss DNR or withdrawal of care, Hospice)? @ -no What co-morbidities impacted this encounter? (DM, HTN, Smoking, COPD, CAD, Cancer, CVA, Hep., AIDS, mental health diagnosis, sleep apnea, morbid obesity)? @ -no Was patient admitted / discharged? @ -dc Undiagnosed new problem with uncertain prognosis? @ -no Drug Therapy requiring intensive monitoring for toxicity (Heparin, Nitro, Insul in, Cardizem)? @ -no Were any procedures done? @ -no Diagnosis/symptom? @ -Vertigo medication reaction and nerve paralysis Acute, or Chronic, or Acute on Chronic? @ -acute Uncomplicated (without systemic symptoms) or Complicated (systemic symptoms)? @ -no Side effects of treatment? @ -no Exacerbation, Progression, or Severe Exacerbation] @ -Exacerbation Poses a threat to life or bodily function? @ -no Reevaluation #5: 01/24/23 17:41 Differential Dizziness: Benign paroxysmal positional Vertigo, Menieres disease, otitis media, acoustic neuroma, vertebrobasilar insufficiency, cerebellar stroke, encephalitis, hypovolemic, arrhythmia, coronary artery syndrome, anemia, this is not meant to be an all-inclusive list EKG Findings - EKG Comments: EKG Findings:: EKG is sinus 94 [place] 152 QRS 86 QTc 400 Medical Decision Making - Medical Decision Making 52 female to the emergency department for evaluation of dizziness and severe vertigo. Patient has vertigo resolved here in the ER likely medication reaction from trigger point injection CT brain is negative and patient can be discharged home - Lab Data Result diagrams: 01/24/23 13:15 01/24/23 13:15 Lab Results 01/24/23 01/24/23 01/24/23 Range/Units 13:15 13:15 13:15 WBC 7.4 (3.8-10.6) k/uL RBC 4.86 (3.80-5.40) m/uL Hgb 14.9 (11.4-16.0) gm/dL Hct 45.2 (34.0-46.0) % MCV 93.1 (80.0-100.0) fL MCH 30.7 (25.0-35.0) pg MCHC 33.0 (31.0-37.0) g/dL RDW 12.6 (11.5-15.5) % Plt Count 336 (150-450) k/uL MPV 7.2 Neutrophils % 70 % Lymphocytes % 20 % Monocytes % 6 % Eosinophils % 2 % Basophils % 1 % Neutrophils # 5.1 (1.3-7.7) k/uL Lymphocytes # 1.5 (1.0-4.8) k/uL Monocytes # 0.5 (0-1.0) k/uL Eosinophils # 0.2 (0-0.7) k/uL Basophils # 0.0 (0-0.2) k/uL PT 10.5 (9.0-12.0) sec INR 1.0 (<1.2) APTT 21.7 L (22.0-30.0) sec Sodium 138 (137-145) mmol/L Potassium 3.0 L (3.5-5.1) mmol/L Chloride 106 (98-107) mmol/L Carbon Dioxide 23 (22-30) mmol/L Anion Gap 9 mmol/L BUN 15 (7-17) mg/dL Creatinine 0.50 L (0.52-1.04) mg/dL Est GFR (CKD-EPI)AfAm >90 (>60 ml/min/1.73 sqM) Est GFR (CKD-EPI)NonAf >90 (>60 ml/min/1.73 sqM) Glucose 106 H (74-99) mg/dL Calcium 7.6 L (8.4-10.2) mg/dL Phosphorus 3.4 (2.5-4.5) mg/dL Magnesium 1.6 (1.6-2.3) mg/dL Total Bilirubin 0.3 (0.2-1.3) mg/dL AST 24 (14-36) U/L ALT 21 (4-34) U/L Alkaline Phosphatase 52 (38-126) U/L Troponin I (0.000-0.034) ng/mL NT-Pro-B Natriuret Pep pg/mL Total Protein 6.1 L (6.3-8.2) g/dL Albumin 3.6 (3.5-5.0) g/dL 01/24/23 01/24/23 Range/Units 13:15 13:15 WBC (3.8-10.6) k/uL RBC (3.80-5.40) m/uL Hgb (11.4-16.0) gm/dL Hct (34.0-46.0) % MCV (80.0-100.0) fL MCH (25.0-35.0) pg MCHC (31.0-37.0) g/dL RDW (11.5-15.5) % Plt Count (150-450) k/uL MPV Neutrophils % % Lymphocytes % % Monocytes % % Eosinophils % % Basophils % % Neutrophils # (1.3-7.7) k/uL Lymphocytes # (1.0-4.8) k/uL Monocytes # (0-1.0) k/uL Eosinophils # (0-0.7) k/uL Basophils # (0-0.2) k/uL PT (9.0-12.0) sec INR (<1.2) APTT (22.0-30.0) sec Sodium (137-145) mmol/L Potassium (3.5-5.1) mmol/L Chloride (98-107) mmol/L Carbon Dioxide (22-30) mmol/L Anion Gap mmol/L BUN (7-17) mg/dL Creatinine (0.52-1.04) mg/dL Est GFR (CKD-EPI)AfAm (>60 ml/min/1.73 sqM) Est GFR (CKD-EPI)NonAf (>60 ml/min/1.73 sqM) Glucose (74-99) mg/dL Calcium (8.4-10.2) mg/dL Phosphorus (2.5-4.5) mg/dL Magnesium (1.6-2.3) mg/dL Total Bilirubin (0.2-1.3) mg/dL AST (14-36) U/L ALT (4-34) U/L Alkaline Phosphatase (38-126) U/L Troponin I <0.012 (0.000-0.034) ng/mL NT-Pro-B Natriuret Pep 74 pg/mL Total Protein (6.3-8.2) g/dL Albumin (3.5-5.0) g/dL - Radiology Data Radiology results: report reviewed (CT brain is negative for acute disease), image reviewed Disposition Clinical Impression: Vertigo, Medication reaction Disposition: HOME SELF-CARE Condition: Good Instructions (If sedation given, give patient instructions): Vertigo (ED) Is patient prescribed a controlled substance at d/c from ED?: No Referrals: Joseph Cuadra MD [Primary Care Provider] - 1-2 days Time of Disposition: 15:20
[2023-01-24 13:29] LABS: Basophils % (A) 1 %; Eosinophils # (A) 0.2 k/uL (0-0.7); Eosinophils % (A) 2 %; HCT 45.2 % (34.0-46.0); HGB 14.9 gm/dL (11.4-16.0); Lymphocytes # (A) 1.5 k/uL (1.0-4.8); Lymphocytes % (A) 20 %; MCH 30.7 pg (25.0-35.0); MCV 93.1 fL (80.0-100.0); Mean Platelet Volume 7.2; Monocytes # (A) 0.5 k/uL (0-1.0); Monocytes % (A) 6 %; Neutrophils # (A) 5.1 k/uL (1.3-7.7); Neutrophils % (A) 70 %; Platelet Count 336 k/uL (150-450); RBC 4.86 m/uL (3.80-5.40); RDW 12.6 % (11.5-15.5); WBC 7.4 k/uL (3.8-10.6)
[2023-01-24 13:39] LABS: ALT 21 U/L (4-34); AST 24 U/L (14-36); African American GFR (CKD) >90 (>60 ml/min/1.73 sqM); Albumin 3.6 g/dL (3.5-5.0); Alkaline Phosphatase 52 U/L (38-126); Anion Gap 9 mmol/L; Blood Urea Nitrogen 15 mg/dL (7-17); Calcium 7.6 mg/dL (8.4-10.2); Carbon Dioxide 23 mmol/L (22-30); Chloride 106 mmol/L (98-107); Glucose 106 mg/dL (74-99); Magnesium 1.6 mg/dL (1.6-2.3); Non-African American GFR(CKD) >90 (>60 ml/min/1.73 sqM); Phosphorus 3.4 mg/dL (2.5-4.5); Sodium 138 mmol/L (137-145); Total Bilirubin 0.3 mg/dL (0.2-1.3); Total Protein 6.1 g/dL (6.3-8.2)
[2023-01-24 14:02] LABS: Prothrombin Time 10.5 sec (9.0-12.0)
[2023-01-24 14:05] LABS: Partial Thromboplastin Time 21.7 sec (22.0-30.0)
--- NOTE | 2023-01-24 14:37 | CT ---
EXAMINATION TYPE: CT brain wo con DATE OF EXAM: 01/24/2023 COMPARISON: 05/29/2018 HISTORY: 52-year-old female with vertigo TECHNIQUE: Examination was done in axial plane without intravenous contrast. Coronal and sagittal r econstructions performed. CT DLP: 1099.4 mGycm Automated exposure control for dose reduction was used. FINDINGS: Right posterior [employer]SP[employer]ER shunt catheter shows tip at the midline, superior aspect of the third ventricle. Calcification along the right foramen magnum and partially visualized right paramedian posterior meni ngocele at the base of the head is redemonstrated. This currently measures 5.2 cm wide and 2.2 cm thi ck versus 6.3 x 3.5 cm and continuing to extend down beyond the [id number]. Redemonstrated partially empty sella. Redemonstrated mild ventriculomegaly though the overall ventricular caliber has improved from 05/29/20. Mild patchy white matter hypodensities in both cerebral hemispheres. Atherosclerotic calcifications along the midline anterior cerebral arteries and also within the carot id siphons. There is no evidence of acute intracranial hemorrhage, acute ischemic changes, or additional extra-a xial fluid collection. There is no effacement of cerebral sulci or basal subarachnoid cisterns. The re is no hydrocephalus. There is no midline shift. Zuleta-white matter distinction is preserved. Paranasal sinuses and mastoid air cells are well pneumatized. Orbits and globes are intact. IMPRESSION: 1. Stable positioning of the right posterior [employer]SP[employer] shunt catheter. The residual mild hydrocephalus shows improvement compared to 05/29/2018. 2. 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 3. Additional calcifications in the right side of the foramen magnum are also unchanged. 4. No acute intracranial abnormality seen.
[2023-01-24] MEDS ORDERED: POTASSIUM CHLORIDE ER 20 MEQ TAB.ER PO STA (15:20)
[2023-01-24] MEDS ORDERED: POTASSIUM BICARBONATE/CIT AC 20 MEQ TABLET.EFF PO STA (15:20)
[2023-01-24 15:52] VITALS: BP 154/77; PULSE 89; RESP 16
== END 2023-01-24 16:00 | disposition home or self-care (01) ==
LOC: EC 12:34
DX: R42 Dizziness and giddiness (principal); T50.995A Adverse effect of other drugs, medicaments and biological substances, initial encounter; I10 Essential (primary) hypertension; E07.9 Disorder of thyroid, unspecified; F32.A Depression, unspecified; Z87.891 Personal history of nicotine dependence; Z79.890 Hormone replacement therapy; Z79.899 Other long term (current) drug therapy
CPT/HCPCS: 99284 ×2; 96374 ×2; 96361 ×2; 36415; 93005; 83880; 80053; 83735; 84100; 84484; 85025; 85610; 85730; 70450; J2405

== ENCOUNTER 2023-07-06 03:23 | Emergency (ER) | payer MEDICARE ==
[2023-07-06 03:30] VITALS: TEMP 98.1
[2023-07-06 03:46] LABS: Glucose,Whole Blood 115 mg/dL (70-110)
[2023-07-06] MEDS ORDERED: SODIUM CHLORIDE 0.9% 1,000 ML IV STA (03:47)
[2023-07-06 04:00] LABS: Basophils % (A) 0 %; Eosinophils # (A) 0.3 k/uL (0-0.7); Eosinophils % (A) 3 %; HGB 14.1 gm/dL (11.4-16.0); Lymphocytes # (A) 2.4 k/uL (1.0-4.8); Lymphocytes % (A) 24 %; MCH 30.6 pg (25.0-35.0); MCHC 32.9 g/dL (31.0-37.0); MCV 92.9 fL (80.0-100.0); Mean Platelet Volume 7.3; Monocytes # (A) 0.8 k/uL (0-1.0); Monocytes % (A) 8 %; Neutrophils # (A) 6.3 k/uL (1.3-7.7); Neutrophils % (A) 63 %; Platelet Count 306 k/uL (150-450); RBC 4.63 m/uL (3.80-5.40); RDW 13.4 % (11.5-15.5); WBC 9.9 k/uL (3.8-10.6)
--- NOTE | 2023-07-06 04:07 | ED ---
General Adult HPI - General Chief complaint: Syncope Stated complaint: Syncope, Right Foot Injury, Loss of conciousness Time Seen by Provider: 07/06/23 03:30 Source: patient, RN notes reviewed, old records reviewed Mode of arrival: wheelchair Limitations: no limitations - History of Present Illness Initial comments: 52-year-old female with syncopal episode. Patient was standing, helping her back to bed. She had felt lightheaded and went to lay down on the bed. She blacked out momentarily. She states this was less than a minute. She is u ncertain if she hit her head but denies current headache. She states she did not eat anything for dinner. Denies vomiting or diarrhea. Denies palpitations or chest pain. No abdominal pain. No fever. - Related Data Home Medications Medication Instructions Recorded Confirmed Losartan Potassium 50 mg PO DAILY 05/29/18 01/24/23 Meloxicam 7.5 mg PO BID 05/29/18 01/24/23 Acetaminophen Tab [Tylenol Tab] 1,000 mg PO Q6H PRN 09/26/18 01/24/23 Latanoprost [Xalatan 0.005%] 1 drop BOTH EYES HS 11/18/20 01/24/23 Progesterone, Micronized 400 mg PO HS 11/18/20 01/24/23 [Progesterone] hydroCHLOROthiazide [Hydrodiuril] 25 mg PO DAILY 11/18/20 01/24/23 traZODone HCL 50 mg PO HS 11/18/20 01/24/23 Baclofen [Lioresal] 20 mg PO TID 01/24/23 01/24/23 Botox 200 Unit Recon Solution 1 dose IM Q90D 01/24/23 01/24/23 Fluconazole [Diflucan] 150 mg PO OWUSU 01/24/23 01/24/23 Thyroid,Pork [[place] Thyroid] 90 mg PO DAILY 01/24/23 01/24/23 Allergies Allergy/AdvReac Type Severity Reaction Status Date / Time No Known Allergies Allergy Verified 07/06/23 03:28 Review of Systems ROS Statement: Those systems with pertinent positive or pertinent negative responses have been documented in the HPI. ROS Other: All systems not noted in ROS Statement are negative. Past Medical History Past Medical History: Cancer, Hypertension, Thyroid Disorder Additional Past Medical History / Comment(s): brain tumor with removal, thyroid CA with removal History of Any Multi-Drug Resistant Organisms: None Reported Past Surgical History: Orthopedic Surgery Additional Past Surgical History / Comment(s): removal of brain tumor, thyroid removal, shunt, LT knee SX, RTshoulder Past Psychological History: Depression Smoking Status: Former smoker Past Alcohol Use History: None Reported Past Drug Use History: None Reported General Exam Limitations: no limitations General appearance: alert, in no apparent distress Head exam: Present: atraumatic, normocephalic Eye exam: Present: normal appearance, PERRL ENT exam: Present: normal exam Neck exam: Present: normal inspection. Absent: tenderness Respiratory exam: Present: normal lung sounds bilaterally. Absent: respiratory distress, wheezes Cardiovascular Exam: Present: regular rate, normal rhythm GI/Abdominal exam: Present: soft. Absent: distended, tenderness, guarding Extremities exam: Present: tenderness (Tenderness over the dorsum of the right foot), other Neurological exam: Present: alert, oriented X3, CN II-XII intact. Absent: motor sensory deficit Skin exam: Present: warm, dry, intact Course Vital Signs 07/06/23 07/06/23 07/06/23 03:26 04:28 05:26 Temperature 98.1 F Pulse Rate 107 H 93 99 Respiratory 18 17 16 Rate Blood Pressure 123/85 139/86 146/88 O2 Sat by Pulse 95 95 95 Oximetry Procedures - Orthopedic Splinting/Casting Injury #1 Side: right Lower Extremity Immobilizer: posterior splint Other Orthopedic Equipment: walker Medical Decision Making - Medical Decision Making Was pt. sent in by a medical professional or institution (, PA, PREVENTIVE MEDICINE PHYSICIAN, urgent care, hospital, or [facility]...) When possible be specific @ -No Did you speak to anyone other than the patient for history (EMS, parent, family, police, friend...)? What history was obtained from this source @ -No Did you review nursing and triage notes (agree or disagree)? Why? @ -I reviewed and agree with nursing and triage notes Were old charts reviewed (outside hosp., previous admission, EMS record, old EKG, old radiological studies, urgent care reports/EKG's, [facility] records)? Report findings @ -No old charts were reviewed Differential Diagnosis (chest pain, altered mental status, abdominal pain women, abdominal pain men, vaginal bleeding, weakness, fever, dyspnea, syncope, headache, dizziness, GI bleed, back pain, seizure, CVA, palpatations, mental health, musculoskeletal)? @ -Differential Syncope: Valvular disease, hypertrophic cardiomyopathy, pulmonary embolism, tamponade, tachycardia, bradycardia, [place], hypovolemia, hemorrhage, dissection, anemia, intracranial hemorrhage, seizure, hypoglycemia, carbon monoxide poisoning, this is not meant to be an all-inclusive list. EKG interpreted by me (3pts min.). @EKG: Sinus rhythm rate of 96, AK interval 173, QRS duration 80, QTC 404 X-rays interpreted by me (1pt min.). @ -Chest x-ray negative for acute cardiopulmonary findings, x-ray of the right foot shows a nondisplaced fracture of the second and fourth metatarsal CT interpreted by me (1pt min.). @ -None done U/S interpreted by me (1pt. min.). @ -None done What testing was considered but not performed or refused? (CT, X-rays, U/S, labs)? Why? @ -None What meds were considered but not given or refused? Why? @ -None Did you discuss the management of the patient with other professionals (professionals i.e. , PA, PREVENTIVE MEDICINE PHYSICIAN, lab, RT, psych nurse, psychiatric social worker supervisor, credit reporting clerk, teacher, residential care officer, shoe parts caser)? Give summary @ -No Was smoking cessation discussed for >3mins.? @ -No Was critical care preformed (if so, how long)? @ -No Were there social determinants of health that impacted care today? How? (Homelessness, low income, unemployed, alcoholism, drug addiction, transportation, low edu. Level, literacy, decrease access to med. care, [place] [facility], rehab)? @ -No Was there de-escalation of care discussed even if they declined (Discuss DNR or withdrawal of care, Hospice)? DNR status @ -No What co-morbidities impacted this encounter? (DM, HTN, Smoking, COPD, CAD, Can cer, CVA, ARF, Chemo, Hep., AIDS, mental health diagnosis, sleep apnea, morbid obesity)? @ -None Was patient admitted / discharged? Hospital course, mention meds given and route, prescriptions, significant lab abnormalities, going to OR and other pertinent info. @52-year-old female with syncopal episode. Patient is in sinus rhythm. She has normal laboratory tests including CBC, CMP, negative troponin. Chest x-rays unremarkable. Patient did fall and injured her right foot there is fracture of the second and fourth metatarsal. She's placed in a posterior mold splint and has a walker at home and she will be nonweightbearing, will follow-up with orthopedics. Undiagnosed new problem with uncertain prognosis? @ -No Drug Therapy requiring intensive monitoring for toxicity (Heparin, Nitro, Insulin, Cardizem)? @ -No Were any procedures done? @ -[Yes, splinting Diagnosis/symptom? @ -Syncope, foot fracture Acute, or Chronic, or Acute on Chronic? @ -Acute Uncomplicated (without systemic symptoms) or Complicated (systemic symptoms)? @ -[Complicated Side effects of treatment? @ -No Exacerbation, Progression, or Severe Exacerbation? @ -No Poses a threat to life or bodily function? How? (Chest pain, [place], [place], pneumonia, PE, COPD, DKA, ARF, appy, cholecystitis, CVA, Diverticulitis, Homicidal, Suicidal, threat to staff... and all critical care pts) @ -Low risk at this time - Lab Data Result diagrams: 07/06/23 03:50 07/06/23 03:50 Lab Results 07/06/23 07/06/23 07/06/23 Range/Units 03:45 03:50 03:50 WBC 9.9 (3.8-10.6) k/uL RBC 4.63 (3.80-5.40) m/uL Hgb 14.1 (11.4-16.0) gm/dL Hct 43.0 (34.0-46.0) % MCV 92.9 (80.0-100.0) fL MCH 30.6 (25.0-35.0) pg MCHC 32.9 (31.0-37.0) g/dL RDW 13.4 (11.5-15.5) % Plt Count 306 (150-450) k/uL MPV 7.3 Neutrophils % 63 % Lymphocytes % 24 % Monocytes % 8 % Eosinophils % 3 % Basophils % 0 % Neutrophils # 6.3 (1.3-7.7) k/uL Lymphocytes # 2.4 (1.0-4.8) k/uL Monocytes # 0.8 (0-1.0) k/uL Eosinophils # 0.3 (0-0.7) k/uL Basophils # 0.0 (0-0.2) k/uL PT 10.4 (10.0-12.5) sec INR 0.9 (<1.2) APTT 20.4 L (22.0-30.0) sec Sodium (137-145) mmol/L Potassium (3.5-5.1) mmol/L Chloride (98-107) mmol/L Carbon Dioxide (22-30) mmol/L Anion Gap mmol/L BUN (7-17) mg/dL Creatinine (0.52-1.04) mg/dL Est GFR (CKD-EPI)AfAm (>60 ml/min/1.73 sqM) Est GFR (CKD-EPI)NonAf (>60 ml/min/1.73 sqM) Glucose (74-99) mg/dL POC Glucose (mg/dL) 115 H (70-110) mg/dL POC Glu Waffle Machine Operator ID Mckayla Castellanos Calcium (8.4-10.2) mg/dL Magnesium (1.6-2.3) mg/dL Total Bilirubin (0.2-1.3) mg/dL AST (14-36) U/L ALT (4-34) U/L Alkaline Phosphatase (38-126) U/L Troponin I (0.000-0.034) ng/mL Total Protein (6.3-8.2) g/dL Albumin (3.5-5.0) g/dL 07/06/23 07/06/23 Range/Units 03:50 04:18 WBC (3.8-10.6) k/uL RBC (3.80-5.40) m/uL Hgb (11.4-16.0) gm/dL Hct (34.0-46.0) % MCV (80.0-100.0) fL MCH (25.0-35.0) pg MCHC (31.0-37.0) g/dL RDW (11.5-15.5) % Plt Count (150-450) k/uL MPV Neutrophils % % Lymphocytes % % Monocytes % % Eosinophils % % Basophils % % Neutrophils # (1.3-7.7) k/uL Lymphocytes # (1.0-4.8) k/uL Monocytes # (0-1.0) k/uL Eosinophils # (0-0.7) k/uL Basophils # (0-0.2) k/uL PT (10.0-12.5) sec INR (<1.2) APTT (22.0-30.0) sec Sodium 139 (137-145) mmol/L Potassium 3.6 (3.5-5.1) mmol/L Chloride 102 (98-107) mmol/L Carbon Dioxide 26 (22-30) mmol/L Anion Gap 11 mmol/L BUN 17 (7-17) mg/dL Creatinine 0.66 (0.52-1.04) mg/dL Est GFR (CKD-EPI)AfAm >90 (>60 ml/min/1.73 sqM) Est GFR (CKD-EPI)NonAf >90 (>60 ml/min/1.73 sqM) Glucose 112 H (74-99) mg/dL POC Glucose (mg/dL) (70-110) mg/dL POC Glu Waffle Machine Operator ID Calcium 9.3 (8.4-10.2) mg/dL Magnesium 2.0 (1.6-2.3) mg/dL Total Bilirubin 0.9 (0.2-1.3) mg/dL AST 43 H (14-36) U/L ALT 26 (4-34) U/L Alkaline Phosphatase 54 (38-126) U/L Troponin I <0.012 (0.000-0.034) ng/mL Total Protein 7.7 (6.3-8.2) g/dL Albumin 4.7 (3.5-5.0) g/dL Disposition Clinical Impression: Syncope, Metatarsal fracture Disposition: HOME SELF-CARE Condition: Fair Instructions (If sedation given, give patient instructions): Foot Fracture in Adults (ED), Syncope (DC) Is patient prescribed a controlled substance at d/c from ED?: No Referrals: Joseph Cuadra [Primary Care Provider] - 1-2 days Jame Kilgore DO [Doctor of Osteopathic Medicine] - 1-2 days Time of Disposition: 06:05
[2023-07-06 04:25] LABS: INR 0.9 (<1.2); Prothrombin Time 10.4 sec (10.0-12.5)
[2023-07-06 04:34] LABS: Partial Thromboplastin Time 20.4 sec (22.0-30.0)
[2023-07-06 04:58] LABS: ALT 26 U/L (4-34); AST 43 U/L (14-36); African American GFR (CKD) >90 (>60 ml/min/1.73 sqM); Albumin 4.7 g/dL (3.5-5.0); Alkaline Phosphatase 54 U/L (38-126); Anion Gap 11 mmol/L; Blood Urea Nitrogen 17 mg/dL (7-17); Calcium 9.3 mg/dL (8.4-10.2); Carbon Dioxide 26 mmol/L (22-30); Chloride 102 mmol/L (98-107); Glucose 112 mg/dL (74-99); Non-African American GFR(CKD) >90 (>60 ml/min/1.73 sqM); Sodium 139 mmol/L (137-145); Total Bilirubin 0.9 mg/dL (0.2-1.3); Total Protein 7.7 g/dL (6.3-8.2)
[2023-07-06 05:15] LABS: Potassium 3.6 mmol/L (3.5-5.1)
--- NOTE | 2023-07-06 05:32 | XR ---
EXAMINATION TYPE: XR chest 1V portable DATE OF EXAM: 07/06/2023 COMPARISON: Chest x-ray May 29, 2018 HISTORY: Syncope TECHNIQUE: Single frontal view of the chest is obtained. FINDINGS: There is no focal air space opacity, pleural effusion, or pneumothorax seen. The cardiac silhouette size remains within normal limits. There is right-sided overlying RAILCAR SWITCHMAN shunt catheter redem onstrated. Surgical change to the right shoulder is noted. IMPRESSION: No acute cardiopulmonary process.
--- NOTE | 2023-07-06 05:35 | XR ---
EXAMINATION TYPE: XR foot complete RT DATE OF EXAM: 07/06/2023 CLINICAL HISTORY: Falling injury with pain TECHNIQUE: Frontal, lateral, and oblique images of the right foot are obtained. COMPARISON: None FINDINGS: There is linear lucency consistent with acute comminuted nondisplaced intra-articular fract ures involving the base of the second and fourth metatarsals. The articulations or Lisfranc joints wi th the middle cuneiform and cuboid bones appear preserved. No definitive involvement of the base of t hird metatarsal. Remainder of right foot is unremarkable. Overlying soft tissue is unremarkable. IMPRESSION: There are acute comminuted nondisplaced intra-articular fractures involving the base of s econd and fourth metatarsals. No definitive Lisfranc joint separation is noted on plain films. No def initive acute fracture in the base of third metatarsal noted.
[2023-07-06 05:36] VITALS: BP 146/88; PULSE 99; RESP 16
[2023-07-06 07:00] LABS: Appearance,Urine Clear (Clear); Bilirubin,Urine Negative (Negative); Blood,Urine Negative (Negative); Color,Urine Light Yellow; Glucose,Urine (UA) Negative (Negative); Ketones,Urine Negative (Negative); Leukocyte Esterase,Urine Negative (Negative); Nitrite,Urine Negative (Negative); Protein,Urine Negative (Negative); Specific Gravity,Urine <1.005 (1.001-1.035); Urobilinogen,Urine <2.0 mg/dL (<2.0)
== END 2023-07-06 07:14 | disposition home or self-care (01) ==
LOC: EC 03:23
DX: S92.324A Nondisplaced fracture of second metatarsal bone, right foot, initial encounter for closed fracture (principal); S92.344A Nondisplaced fracture of fourth metatarsal bone, right foot, initial encounter for closed fracture; R55 Syncope and collapse; I10 Essential (primary) hypertension; E07.9 Disorder of thyroid, unspecified; Z86.59 Personal history of other mental and behavioral disorders; Z79.890 Hormone replacement therapy; Z79.899 Other long term (current) drug therapy; Z87.891 Personal history of nicotine dependence; X58.XXXA Exposure to other specified factors, initial encounter
CPT/HCPCS: 29515; 36415; 71045; 80053; 81003; 83735; 84484; 85025; 85610; 85730; 93005; 96360; 96361; 99284

== ENCOUNTER → 2023-08-21 | Outpatient (CLI) | payer MEDICARE ==
--- NOTE | 2023-08-22 08:27 | MM ---
Reason for Exam: Screening (asymptomatic). Last mammogram was performed 1 year(s) and 2 month(s) ago. Patient History: Menarche at age 11. First Full-Term at age 24. Postmenopausal. Other cancer, age 41. Currently using Estrogen, for 1 year, 6 months. Currently using Progesterone, for 1 year, 6 months. Hormonal Contraceptives for 5 years from age 18 until age 23. 12/13/2008, Benign Core Biopsy on the right side. Risk Values: Alma 5 year model risk: 1.5%. NCI Lifetime model risk: 10.8%. Prior Study Comparison: 06/08/2020 Bilateral Screening Mammogram, [facility]. 06/22/2021 Bilateral Screening Mammogram, [facility]. 06/28/2022 Bilateral MG 3D screening mammo w/cad, [facility]. Tissue Density: The breast tissue is almost entirely fat. Findings: Analyzed By CAD. There is no suspicious group of microcalcifications or new suspicious mass in either breast. Overall Assessment: Benign, BI-RAD 2 Management: Screening Mammogram of both breasts in 1 year. . Patient should continue monthly self-breast exams. A clinical breast exam by your physician is recommended on an annual basis. This exam should not preclude additional follow-up of suspicious palpable abnormalities. Note on Alma scores and lifetime risk: 1. A Alma score greater than 3% is considered moderate risk. If this is the case, consider specialist referral to assess eligibility for a risk reducing agent. 2. If overall lifetime risk for the development of breast cancer is 20% or higher, the patient may qualify for future screening with alternating mammogram and breast MRI. Electronically signed and approved by: Mitchell Gonzalez M.D. Radiologis
== END | disposition home or self-care (01) ==
LOC: RADMAMWWP 13:02
PROVIDERS: ATTEND Obstetrics & Gynecology
DX: Z12.31 Encounter for screening mammogram for malignant neoplasm of breast (principal); Z78.0 Asymptomatic menopausal state
CPT/HCPCS: 77063; 77067

== ENCOUNTER 2023-09-27 11:29 | Day surgery (SDC) | payer MEDICARE ==
[2023-09-23 10:49] VITALS: BMI 25.7
[~2023-09-27 11:29] MED LIST: LACTATED RINGERS 1,000 ML IV SCH; LIDOCAINE 1% (10MG/ML) FOR IV START INTRADERMA PRN
[2023-09-27 12:08] VITALS: TEMP 98
[2023-09-27] MEDS ORDERED: LIDOCAINE 1% INJ 10MG/ML (20 ML MDV) ONE (13:05)
[2023-09-27] MEDS ORDERED: PROPOFOL 10 MG/ML 20 ML VIAL IV ONE (13:05)
--- NOTE | 2023-09-27 13:31 | P.PCN ---
Date of Procedure: 09/27/23 Procedure(s) Performed: BRIEF HISTORY: Patient is a 53-year-old pleasant white female scheduled for an elective colonoscopy as a part of screening for colon cancer and family history of colon cancer. Her mother was diagnosed with colon cancer at age 70. PROCEDURE PERFORMED: Colonoscopy with snare polypectomy. PREOPERATIVE DIAGNOSIS: Screening for colon cancer and family history of colon cancer. IV sedation per Anesthesia. PROCEDURE: After informed consent was obtained, the patient, was brought into the endoscopy unit. IV sedation was administered by Anesthesia under continuous monitoring. Digital rectal examination was normal. Initially the Olympus CF-160 flexible video colonoscope was then inserted in the rectum, gradually advanced into the cecum without any difficulty. Careful examination was performed as the scope was gradually being withdrawn. Ileocecal valve and the appendiceal orifice were visualized and appeared normal. Prep was excellent. Mucosa of the cecum, ascending colon, transverse colon, descending colon appeared normal. In the sigmoid there was a 5 mm polyp that was removed by cold snare polypectomy. Rest of the, sigmoid colon, and rectum appeared normal. Retroflexion was performed in the rectum and no lesions were seen. The patient tolerated the procedure well. IMPRESSION: 5 mm sigmoid colon polyp status post cold snare polypectomy Rest of the colon appeared normal RECOMMENDATIONS: Findings of this examination were discussed with the patient as well as her family. She was advised to follow with the biopsy results and have a repeat colonoscopy in 5 years because of the family history of colon cancer..
[2023-09-27 14:10] VITALS: BP 155/92; PULSE 77; RESP 15
== END 2023-09-27 13:56 | disposition home or self-care (01) ==
LOC: ORWHC2ENDO 11:29
PROVIDERS: ATTEND Internal Medicine Gastroenterology
DX: Z12.11 Encounter for screening for malignant neoplasm of colon (principal); K63.5 Polyp of colon; I10 Essential (primary) hypertension; F12.90 Cannabis use, unspecified, uncomplicated; E03.9 Hypothyroidism, unspecified; F32.A Depression, unspecified; Z79.890 Hormone replacement therapy; Z79.899 Other long term (current) drug therapy; Z80.0 Family history of malignant neoplasm of digestive organs; Z79.1 Long term (current) use of non-steroidal anti-inflammatories (NSAID); Z85.850 Personal history of malignant neoplasm of thyroid
CPT/HCPCS: 88305; 45385; J2001; J2704

== ENCOUNTER → 2024-10-01 | Outpatient (CLI) | payer MEDICARE ==
--- NOTE | 2024-10-01 12:10 | MM ---
Reason for Exam: Screening (asymptomatic). Last mammogram was performed 1 year(s) and 1 month(s) ago. Patient History: Menarche at age 11. First Full-Term at age 24. Postmenopausal. Other cancer, age 41. Currently using Estrogen, for 1 year, 6 months. Currently using Progesterone, for 1 year, 6 months. Hormonal Contraceptives for 5 years from age 18 until age 23. 12/13/2008, Benign Core Biopsy on the right side. Risk Values: Alma 5 year model risk: 1.6%. NCI Lifetime model risk: 10.4%. Prior Study Comparison: 06/22/2021 Bilateral Screening Mammogram, [facility]. 06/28/2022 Bilateral MG 3D screening mammo w/cad, [facility]. 08/21/2023 Bilateral MG 3D screening mammo w/cad, [facility]. Tissue Density: There are scattered areas of fibroglandular density. Findings: Analyzed By CAD. Microclip right breast from prior biopsy. Shunt catheter again seen along the right chest wall. There is no suspicious group of microcalcifications or new suspicious mass in either breast. Overall Assessment: Benign, BI-RAD 2 Management: Screening Mammogram of both breasts in 1 year. . Patient should continue monthly self-breast exams. A clinical breast exam by your physician is recommended on an annual basis. This exam should not preclude additional follow-up of suspicious palpable abnormalities. Note on Alma scores and lifetime risk: 1. A Alma score greater than 3% is considered moderate risk. If this is the case, consider specialist referral to assess eligibility for a risk reducing agent. 2. If overall lifetime risk for the development of breast cancer is 20% or higher, the patient may qualify for future screening with alternating mammogram and breast MRI. [facility], , 10/01/2024 12:07 PM. Electronically signed and approved by: Negro Alfaro M.D. Radiologist
== END | disposition home or self-care (01) ==
LOC: RADMAMWWP 10:44
PROVIDERS: ATTEND Obstetrics & Gynecology
DX: Z12.31 Encounter for screening mammogram for malignant neoplasm of breast (principal); Z78.0 Asymptomatic menopausal state; R92.323 Mammographic fibroglandular density, bilateral breasts; Z98.82 Breast implant status
CPT/HCPCS: 77063; 77067